=== PATIENT | female | born 1980 | race African-American/Black ===

== ENCOUNTER 2022-11-17 17:10 | Inpatient (IN) | payer OTHER ==
[2022-11-17 18:56] VITALS: BMI 29.2
[2022-11-17] MEDS ORDERED: IBUPROFEN 400 MG TABLET (FP) PO PRN (19:45)
[2022-11-17] MEDS ORDERED: MAGNESIUM HYDROX 2400MG/30ML ORAL SUSPENSION 30 ML CUP PO PRN (19:45)
[2022-11-17] MEDS ORDERED: ONDANSETRON *ODT* 4 MG TABLET SL PRN (19:45)
[2022-11-17] MEDS ORDERED: MAG HYDROX/AL HYDROX/SIMETH 30 ML UNIT-DOSE CUP PO PRN (19:45)
[2022-11-17] MEDS ORDERED: BENZOCAINE/MENTHOL (CHLORASEPTIC ) LOZENGE MM PRN (19:45)
[2022-11-17] MEDS ORDERED: DICYCLOMINE HCL 10 MG CAPSULE PO PRN (19:45)
[2022-11-17] MEDS ORDERED: BISMUTH SUBSALICYLATE 524 MG/30 ML PO PRN (19:45)
[2022-11-17] MEDS ORDERED: POLYETHYLENE GLYCOL (HEALTHYLAX) 3350 17 GM PACKET PO PRN (19:45)
[2022-11-17] MEDS ORDERED: IBUPROFEN 600 MG TABLET (FP) PO PRN (19:45)
[2022-11-17] MEDS ORDERED: LOPERAMIDE HCL 2 MG CAPSULE PO PRN (19:45)
[2022-11-17] MEDS ORDERED: ACETAMINOPHEN 325 MG TABLET (FP) PO PRN ×2 (19:45)
[2022-11-17] MEDS: diazePAM 5 MG TABLET PO PRN (20:28)
[2022-11-17] MEDS ORDERED: BENZOCAINE 20 % GEL TUBE MM PRN (22:37)
[2022-11-17] MEDS: hydrOXYzine PAMOATE 25 MG CAPSULE (FP) PO PRN (23:34)
[2022-11-17] MEDS: diazePAM 5 MG TABLET PO SCH (23:34)
[2022-11-17] MEDS: THIAMINE HCL 100 MG TABLET (FP) PO SCH (23:40)
[2022-11-18] MEDS: diazePAM 5 MG TABLET PO SCH ×4 (05:29→22:18)
[2022-11-18] MEDS: hydrOXYzine PAMOATE 25 MG CAPSULE (FP) PO PRN ×2 (05:30→10:34)
[2022-11-18] MEDS: PRENATAL VITAMINS W/ FOLIC ACID TABLET (FP) PO SCH (10:34)
[2022-11-18 11:38] LABS: HEMATOCRIT 46.2 % (32.4-45.2); HEMOGLOBIN 14.9 GM/dL (10.7-15.3); MCH 30.9 pg (25.7-33.7); MCHC 32.2 g/dl (32.0-36.0); MEAN CELL VOLUME 95.8 fl (80-96); MEAN PLT VOLUME 9.1 fl (7.5-11.1); PLATELET COUNT 143 10^3/uL (134-434); RBC 4.82 M/mm3 (3.60-5.2); WHITE BLOOD COUNT 5.9 K/mm3 (4.0-10.0)
[2022-11-18 11:46] LABS: CALCIUM 8.9 mg/dL (8.5-10.1)
[2022-11-18 11:47] LABS: ALBUMIN 3.6 g/dl (3.4-5.0); BLOOD UREA NITROGEN 4.2 mg/dL (7-18)
[2022-11-18 11:50] LABS: CREATININE 0.8 mg/dL (0.55-1.3)
[2022-11-18 11:52] LABS: BILIRUBIN,TOTAL 0.8 mg/dL (0.2-1)
[2022-11-18] MEDS: METHOCARBAMOL 500 MG TABLET PO PRN (17:47)
[2022-11-18] MEDS: NICOTINE POLACRILEX 2 MG GUM BUC PRN ×2 (20:53→23:08)
[2022-11-18] MEDS: MELATONIN 5 MG TABLETS PO PRN (22:19)
[2022-11-18] MEDS: THIAMINE HCL 100 MG TABLET (FP) PO SCH (22:19)
[2022-11-19] MEDS: diazePAM 5 MG TABLET PO SCH ×3 (06:09→22:12)
[2022-11-19] MEDS: hydrOXYzine PAMOATE 25 MG CAPSULE (FP) PO PRN ×2 (06:09→17:12)
[2022-11-19 07:12] VITALS: RESP 18
[2022-11-19] MEDS: METHOCARBAMOL 500 MG TABLET PO PRN ×2 (09:58→22:12)
[2022-11-19] MEDS: PRENATAL VITAMINS W/ FOLIC ACID TABLET (FP) PO SCH (09:58)
[2022-11-19] MEDS: diazePAM 5 MG TABLET PO PRN ×2 (09:58→17:12)
[2022-11-19] MEDS: NICOTINE 10 MG CARTRIDGE (INHALER) IH PRN (09:59)
[2022-11-19] MEDS: NICOTINE POLACRILEX 2 MG GUM BUC PRN (10:01)
[2022-11-19] MEDS: MELATONIN 5 MG TABLETS PO PRN (22:12)
[2022-11-19] MEDS: THIAMINE HCL 100 MG TABLET (FP) PO SCH (22:12)
[2022-11-20] MEDS ORDERED: diazePAM 5 MG TABLET PO SCH (06:00)
[2022-11-20] MEDS: NICOTINE 10 MG CARTRIDGE (INHALER) IH PRN (09:03)
[2022-11-20 09:47] VITALS: TEMP 97.3
[2022-11-20] MEDS: PRENATAL VITAMINS W/ FOLIC ACID TABLET (FP) PO SCH (10:05)
[2022-11-20] MEDS: diazePAM 5 MG TABLET PO PRN (10:07)
[2022-11-20] MEDS: hydrOXYzine PAMOATE 25 MG CAPSULE (FP) PO PRN (10:07)
[2022-11-20 14:00] VITALS: BP 132/86; PULSE 96
[2022-11-21] MEDS ORDERED: diazePAM 5 MG TABLET PO ONE (06:00)
== END 2022-11-20 14:11 | disposition home or self-care (01) | DRG 775 ==
LOC: YASAS 17:10 → Y6N 19:08
PROVIDERS: ADMIT Allergy & Immunology; ATTEND Surgery
PROC: HZ2ZZZZ Detoxification Services for Substance Abuse Treatment (ICD-10-PCS; principal; 2022-11-17)
DX: F10.230 Alcohol dependence with withdrawal, uncomplicated (principal); F17.210 Nicotine dependence, cigarettes, uncomplicated; F25.9 Schizoaffective disorder, unspecified; F41.9 Anxiety disorder, unspecified; F43.10 Post-traumatic stress disorder, unspecified; K21.9 Gastro-esophageal reflux disease without esophagitis; I25.2 Old myocardial infarction; Z86.69 Personal history of other diseases of the nervous system and sense organs; Z86.2 Personal history of diseases of the blood and blood-forming organs and certain disorders involving the immune mechanism; Z88.0 Allergy status to penicillin; Z91.012 Allergy to eggs
CPT/HCPCS: 36415; 80053; 85027; 86780; 93005; 93010; C9803-CS; U0003; U0005